=== PATIENT | female | born 1980 | race Caucasian/White ===

== ENCOUNTER 2022-07-09 16:56 | Emergency (ER) | payer BC ==
[~2022-07-09] VITALS: Ht 162.6 cm; Wt 82.0 kg
[2022-07-09 17:25] VITALS: BP 134/79
[2022-07-09] MEDS ORDERED: MUPI22OI30 TOP (18:09)
== END 2022-07-09 18:31 | disposition home or self-care (01) ==
LOC: ER 16:58
DX: S61.411D Laceration without foreign body of right hand, subsequent encounter (principal); Z48.00 Encounter for change or removal of nonsurgical wound dressing; X58.XXXD Exposure to other specified factors, subsequent encounter
CPT/HCPCS: 99283